=== PATIENT | male | born 1970 | race Caucasian/White ===

== ENCOUNTER 2022-01-30 07:08 | Day surgery (SDC) | payer OTHER ==
[~2022-01-30] VITALS: Ht 200.7 cm; Wt 152.0 kg
[~2022-01-30 07:08] MED LIST: ALLEGRA ALLERG180 MG PO; GLUCOSAMINE HC500 MG PO
--- NOTE | 2022-01-30 09:54 | NUR ---
01/30/22 0954 Areli Dorman 0950-PT TO PACU IN LL POSITION. EYES CLOSED. PT OPENS EYES AND RESPONDS TO VERBAL STIMULI. PT REPORTS CRAMPY PAIN IN LOWER ABDOMEN. PT ENCOURAGED TO PASS GAS. BREATHING EASY AND UNLABORED. SPO2 >95% ON 3 L O2 VIA NC.
--- NOTE | 2022-01-31 05:38 | OR ---
[facility] [address] [place], [place] [address] Signed DATE OF OPERATION: 01/30/2022 SURGEON: Marleen Perla MD PREOPERATIVE DIAGNOSES: 1. Maternal uncle with colon cancer in late 50s. 2. Pruritus ani. POSTOPERATIVE DIAGNOSES: 1. Moderate left-sided diverticulosis. 2. A 3 mm polyp at 10 cm. 3. A 5 mm polyp at 30 cm. 4. A 3 mm polyp at the base of cecum. 5. A 4 mm polyp at 62 cm. 6. A 4 mm polyp at 25 cm. PROCEDURE: Colonoscopy with hot biopsy. ESTIMATED BLOOD LOSS: None. INDICATIONS: Davidson is a 51-year-old gentleman asked to see me for his initial colonoscopy. His maternal uncle was diagnosed and of his colon cancer in his late 50s. Davidson also works at [employer], he does describe pruritus ani. He has a regimen at home and he follows and it worked out very nicely for him. I gave him a brochure on colonoscopy. He understands the nature of the test. There is risk including, but not limited to gas bloating, crampy abdominal pain, bleeding, perforation requiring surgery, and missed diagnosis. We also discussed the need for IV conscious sedation. He had expressed understanding and wished to proceed. DESCRIPTION OF PROCEDURE: Davidson was taken into our endoscopy suite and placed in the left lateral decubitus position. He was given a total of 10 mg of Versed and 200 mcg of fentanyl to cover the whole case. He metabolized drug very quickly, and most frequently awake and talking to us and moaning and moving around in pain. He is also a very large man at 6 feet 5 inches tall and over 300 pounds. He would be much safer and would serve him much better to have monitored anesthesia care in the future with propofol. A digital rectal exam had been performed and he has good sphincter tone without any external hemorrhoids. I Electronically Signed By: MARLEEN PERLA MD 01/31/22 0538 PATIENT NAME: DAVIDSON PEREZ OPERATIVE REPORT DATE OF : 74 REPORT #: [id number] PHYSICIAN: MARLEEN PERLA MD PCP: AARON HO MD REPORT IS CONFIDENTIAL AND NOT TO BE RELEASED WITHOUT AUTHORIZATION [facility] [address] [place], [place] [address] Signed could just reach the base of his prostate, it is a bit indurated at his age. The adult colonoscope had been introduced and advanced under direct visualization of the camera up into the cecum. We had used extra sedation and abdominal compression in order to advance the scope. His prep was quite good. We could easily see the appendiceal orifice and the ileocecal valve. The scope was then slowly withdrawn. We took pictures throughout for photodocumentation. The above-mentioned polyps were all removed with the help of hot biopsy forceps. He does have moderate left-sided diverticulosis, they are moderate in size, moderate in number, and scattered about. Once in the rectum, the scope had been retroflexed, really no evidence of any internal hemorrhoids. After this, the gas was suctioned out, colonoscope removed. Overall, Davidson tolerated the procedure well. RECOMMENDATIONS: I will see Davidson back in my office in 7 to 14 days to review his results. He might consider monitored anesthesia care in the future. Marleen Perla MD ALB/MODL /[id number] cc: MD Aaron Bishop MD Patient Chart Copies: MARLEEN PERLA MD, ROBERT D DMD ~ Electronically Signed By: MARLEEN PERLA MD 01/31/22 0538 PATIENT NAME: DAVIDSON PEREZ OPERATIVE REPORT DATE OF : 74 REPORT #: [id number] PHYSICIAN: MARLEEN PERLA MD PCP: AARON HO MD REPORT IS CONFIDENTIAL AND NOT TO BE RELEASED WITHOUT AUTHORIZATION
--- NOTE | 2022-02-02 10:16 | PATH ---
[facility] [address] [place] [place] [address] Signed SPECIMEN(S): A COLON POLYP AT 10 CM SPECIMEN(S): B COLON POLYP AT 30 CM SPECIMEN(S): C CECUM POLYP SPECIMEN(S): D COLON POLYP AT 62 CM SPECIMEN(S): E COLON POLYP AT 25 CM SPECIMEN SOURCE: A. COLON POLYP AT 10 CM B. COLON POLYP AT 30 CM C. CECUM POLYP D. COLON POLYP AT 62 CM E. COLON POLYP AT 25 CM CLINICAL HISTORY: Screening colonoscopy. Dx: Polyp and diverticulosis. FINAL PATHOLOGIC DIAGNOSIS: A. Colon, polyp at 10 cm, polypectomy: - Cauterized colonic mucosa with focal mucosal changes and nuclear hyperchromasia, see Comment. - Negative for high-grade dysplasia or malignancy. B. Colon, polyp at 30 cm, polypectomy: - Fragments of hyperplastic polyp. - Negative for dysplasia or malignancy. C. Colon, cecum, polyp, polypectomy: - Hyperplastic polyp. - Negative for dysplasia or malignancy. D. Colon, polyp at 62 cm, polypectomy: - Cauterized tubular adenoma. - Negative for high-grade dysplasia or malignancy. E. Colon, polyp at 25 cm, polypectomy: - Tubular adenoma. - Negative for high-grade dysplasia or malignancy. COMMENT: Regarding specimen A: The cautery artifact precludes definitive interpretation for low-grade dysplasia, however a cauterized tubular adenoma is favored. Multiple additional deeper levels of specimens A, C, and D were examined. NAL:cml:C2NR MICROSCOPIC EXAMINATION: PATIENT NAME: DAVIDSON PEREZ PATHOLOGY DATE OF : 74 REPORT #: [id number] PHYSICIAN: JAKUB LOPEZ PCP: AARON HO MD REPORT IS CONFIDENTIAL AND NOT TO BE RELEASED WITHOUT AUTHORIZATION [facility] [address] [place], [place] [address] Signed Histologic sections of all submitted blocks are examined by light microscopy. These findings, together with the gross examination, support the pathologic diagnosis. GROSS DESCRIPTION: Five specimens are received in five containers, labeled "MN." A. The specimen, labeled "MN, colon polyp at 10 cm," is received in formalin and consists of one shah soft tissue fragment that measures 0.2 cm in greatest dimension. The specimen is entirely submitted in cassette (A1). B. The specimen, labeled "MN colon polyp at 30 cm," is received in formalin and consists of three shah soft tissue fragments that measure 0.2 cm in greatest dimension. The specimen is entirely submitted in cassette (B1). C. The specimen, labeled "MN, cecum polyp," is received in formalin and consists of two shah soft tissue fragments that measure 0.2 cm in greatest dimension. The specimen is entirely submitted in cassette (C1). D. The specimen, labeled "MN, colon polyp at 62 cm," is received in formalin and consists of one shah soft tissue fragment that measures 0.1 cm in greatest dimension. The specimen is entirely submitted in cassette (D1). E. The specimen, labeled "MN, colon polyp at 25 cm," is received in formalin and consists of one shah soft tissue fragment that measures 0.1 cm in greatest dimension. The specimen is entirely submitted in cassette (E1). JS (under the direct supervision of a pathologist) The Gross Description was prepared using a voice recognition system. The report was reviewed for accuracy; however, sound-alike word errors, addition and/or deletions may occur. If there is any question about this report, please contact Client Services. PERFORMING LABORATORY: The technical component was performed by [facility], [address] [place] [id number] (CLIA# [id number]). Professional interpretation was performed by [facility], [address] [address] (CLIA# [id number]). Diagnostician: Erendira Torres MD Pathologist PATIENT NAME: DAVIDSON PEREZ PATHOLOGY DATE OF : 74 REPORT #: [id number] PHYSICIAN: JAKUB PATHOLOGY PCP: AARON HO MD REPORT IS CONFIDENTIAL AND NOT TO BE RELEASED WITHOUT AUTHORIZATION [facility] [address] [place], [place] [address] Signed Electronically Signed 02/02/2022 Copies: ~ PATIENT NAME: DAVIDSON PEREZ PATHOLOGY DATE OF : 74 REPORT #: [id number] PHYSICIAN: JAKUB LOPEZ PCP: AARON HO MD REPORT IS CONFIDENTIAL AND NOT TO BE RELEASED WITHOUT AUTHORIZATION
== END 2022-01-30 10:25 | disposition home or self-care (01) ==
LOC: OPS 07:08 → DS 07:08 → OPS 09:00
PROVIDERS: ATTEND Colon & Rectal Surgery
PROC: 0DBE8ZX Excision of Large Intestine, Via Natural or Artificial Opening Endoscopic, Diagnostic (ICD-10-PCS; 2022-01-30)
PROC: 0DBH8ZX Excision of Cecum, Via Natural or Artificial Opening Endoscopic, Diagnostic (ICD-10-PCS; principal; 2022-01-30 08:15)
DX: Z12.11 Encounter for screening for malignant neoplasm of colon (principal); D12.0 Benign neoplasm of cecum; L29.0 Pruritus ani; I10 Essential (primary) hypertension; E78.2 Mixed hyperlipidemia; E66.9 Obesity, unspecified; Z88.1 Allergy status to other antibiotic agents; Z68.37 Body mass index [BMI] 37.0-37.9, adult; Z80.0 Family history of malignant neoplasm of digestive organs; K57.30 Diverticulosis of large intestine without perforation or abscess without bleeding
CPT/HCPCS: 99153; G0500; J2250; J3010; J7121

== ENCOUNTER 2022-02-14 14:57 | Inpatient (IN) | payer OTHER ==
[~2022-02-14] VITALS: Ht 200.7 cm; Wt 148.0 kg
[2022-02-14] MEDS ORDERED: IBUPROFEN200 M1 PO (15:27)
--- NOTE | 2022-02-14 19:30 | NUR ---
PATIENT ARRIVED VIA STRETCHER FROM ED. PATIENT IS ALERT AND ORIENTED. TRANSFERED INDEPENDENTLY TO THE BED. DENIES FEELING LIGHTHEADED OR SOB. VS STABLE. IV SITES WNL X2. PATIENT'S IN ROOM. PATIENT DENIED FEELING NAUSEA OR GI UPSET. DENIES PAIN. ABD IS SOFT, BOWEL SOUNDS ACTIVE. PATIENT STARTED ON BOWEL PREP. IV FLUIDS PER ORDER.
--- NOTE | 2022-02-14 20:30 | NUR ---
PATIENT VOIDED 100 MLS CONCENTRATED URINE. HAD A LIQUID BM, DARK RED WITH CLOTS. EASTIMATED 250 MLS. PATIENT REPORTS FEELING WEAKER BUT NO OTHER CONCERNS. VS STABLE.
--- NOTE | 2022-02-14 22:00 | NUR ---
PATIENT FINISHED BOWEL PREP. ANOTHER LARGE LIQUID BM WITH SOME SOLIDS NOTED BY HOLE DIGGER. 900MLS IN TOTAL. PATIENT VOIDED ANOTHER 100 MLS OF CONCENTRATED URINE. NO GI UPSET. VS STABLE. IV FLUIDS PER ORDER. PATIENT DENIES ANY FURTHER NEEDS; CALL LIGHT IN REACH. LABS DRAWN FROM IV SITE; PROTOCOL FOLLOWED FROM PROPER LAB COLLECTION.
--- NOTE | 2022-02-15 02:37 | NUR ---
PATIENT UP TO VOID X2. THIS MORE RECENT TIME HE ALSO HAD A BM. MORE BLOODY LIQUID STOOL WITH SMALL CLOTS AND BM MIXED. PATIENT DENIED FEELING LIGHTHEADED; REPORTS BEING TIRED AND NOT SLEEPING WELL. FAMILY AT BEDSIDE. VS STABLE. IV SITE WNL X2. NO NAUSEA OR GI UPSET. DENIED PAIN.
--- NOTE | 2022-02-15 04:15 | NUR ---
PATIENT APPEARS TO BE RESTING, EYES CLOSED. VS STABLE.
--- NOTE | 2022-02-15 06:04 | CONS ---
[facility] [address] [place], [place] [address] Signed DATE OF CONSULTATION: 02/14/2022 CHIEF COMPLAINT: Rectal bleeding. HISTORY OF PRESENT ILLNESS: Davidson is a 51-year-old gentleman, who was asked to see me for his initial colonoscopy. His maternal uncle developed colon cancer in his late 50s and very quickly thereafter from the colon cancer. 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 I took him for his colonoscopy on 01/30/2022. He had polyps measuring 3 to 5 mm at 10 cm, base of cecum, 30 cm, 62 cm, and 25 cm. He has moderate left-sided diverticulosis. Really not much in the way of any internal hemorrhoids. He has done well and gone home. He has actually been back to the office for followup. These were hyperplastic and adenomatous polyps. He has been working in construction. Specifically, he was lying heavy large tile all day yesterday. By noon today he was having some rectal bleeding. He has had multiple episodes. He finally came to emergency room for evaluation. He has been hemodynamically stable and currently his hemoglobin is 15. BUN is ever so slightly up at 19. The blood happens to be red. He is COVID negative. His other labs were fine. He has been evaluated by the ER physician, Dr. Paul Melendez. He is being admitted to our Internal Medicine Service and of course I have been asked to see him in consultation. I came here to the emergency room to talk with Davidson and his . PAST MEDICAL HISTORY: Prostate inflammation, elevated ALT, hypertension, hyperlipidemia, obesity, osteoarthritis of the right shoulder and AC joint, right rotator cuff sprain, right rhomboid muscle strain, and prostate neoplasm. PAST SURGICAL HISTORY: [place] teeth extraction in 1989, and then his colonoscopy on 01/30/2022. SOCIAL HISTORY: He is single, but is in a monogamous relationship. He does not drink alcohol or smoke. He does not do any recreational drugs. Dr. Aaron Ho is primary care provider. FAMILY HISTORY: Paternal grandfather with type 2 diabetes. Paternal uncle with colon cancer in his 50s and maternal grandmother with breast cancer. MEDICATIONS: Tylenol p.r.n., glucosamine, Flonase, Eliz, and occasional ibuprofen. ALLERGIES: Electronically Signed By: MARLEEN PERLA MD 02/15/22 0604 PATIENT NAME: DAVIDSON PEREZ CONSULTATION DATE OF : 74 REPORT #: [id number] PHYSICIAN: MARLEEN PERLA MD PCP: AARON HO MD REPORT IS CONFIDENTIAL AND NOT TO BE RELEASED WITHOUT AUTHORIZATION [facility] [address] [place], [place] [address] Signed Erythromycin. REVIEW OF SYSTEMS: He had 10 systems reviewed. He told me he took one ibuprofen this morning, but otherwise has been doing fine. PHYSICAL EXAMINATION: VITAL SIGNS: His blood pressure is 102/92, heart rate 70, respiratory rate 19, his O2 saturation 95%. He is 6 feet 7 inches tall, 151 kg. GENERAL: Davidson is a 51-year-old gentleman lying supine semi-recumbent in his ER bed with his girlfriend at the bedside. He is alert, awake, and interactive. He has no increased respiratory distress. He is a good historian. ABDOMEN: Benign. LABORATORY DATA: His white blood cell count is 8.3, hemoglobin 15, neutrophils 63, platelets 210. Potassium 3.3, BUN 19, creatinine 0.83. COVID was negative. INR 0.98. His calcium is slightly low at 8.1. His liver function tests are negative. Albumin 3.5. RADIOGRAPHIC STUDIES: None. ASSESSMENT AND PLAN: Davidson is a 51-year-old gentleman, who presents with what appears to be a post polypectomy bleed 15 days after his colonoscopy. It is bright red, and it could be the biopsy site from the rectum or quite frankly any of the other biopsy sites. At this point, we are going to admit him, hydrate him, give him a bowel prep tonight with hopes to perform his colonoscopy tomorrow and see if we can find which biopsy site is bleeding. In general, these patients do well. I have reviewed this with Davidson and his girlfriend in detail. They are very familiar with colonoscopy. They understand there is risk including, but not limited to gas, bloating, crampy abdominal pain, bleeding, perforation requiring surgery, and missed diagnosis. In addition, he used a large amount of Versed and fentanyl in his last procedure and he is probably hanson on this occasion to the use monitored anesthesia care given the acute setting. They have expressed understanding and agreed above plan. Marleen Perla MD ALB/MODL /[id number] Electronically Signed By: MARLEEN PERLA MD 02/15/22 0604 PATIENT NAME: DAVIDSON PEREZ CONSULTATION DATE OF : 74 REPORT #: [id number] PHYSICIAN: MARLEEN PERLA MD PCP: AARON HO MD REPORT IS CONFIDENTIAL AND NOT TO BE RELEASED WITHOUT AUTHORIZATION [facility] [address] [place] [address] Signed cc: MD Aaron Bishop MD Copies: MARLEEN PERLA MD, ROBERT D DMD ~ Electronically Signed By: MARLEEN PERLA MD 02/15/22 0604 PATIENT NAME: DAVIDSON PEREZ CONSULTATION DATE OF : 74 REPORT #: [id number] PHYSICIAN: MARLEEN PERLA MD PCP: AARON HO MD REPORT IS CONFIDENTIAL AND NOT TO BE RELEASED WITHOUT AUTHORIZATION
--- NOTE | 2022-02-15 06:05 | NUR ---
PATIENT UPDATE PROVIDED TO . NO NEW ORDERS. IN TO SEE PATIENT.
--- NOTE | 2022-02-15 07:30 | NUR ---
PATIENT SHIFT REPORT RECIEVED FROM ENTERTAINMENT USHER RN. PATIENT HAS LEFT WITH SURGICAL STAFF AT 0710 FOR AM PROCEDURE. WILL AWAIT FOR PATIENTS RETURN. BEDDING CHANGED AND ROOM CLEANED.
--- NOTE | 2022-02-15 08:30 | NUR ---
PATIENT ARRIVED BACK FROM HIS PROCEDURE. PATIENT WAS ABLE TO TRANSFER HIMSELF FROM THE STRETCHER TO THE BED. KATTY BARBER AT THE BEDSIDE. BRAYDEN PORTER ARRIVED WITH PATIENT WELL. PATIENTS VITALS STABLE. PATIENT HOLDING TALKING WITH STAFF. WILL CONTINUE TO CLOSELY MONITOR.
--- NOTE | 2022-02-15 09:32 | NUR ---
PATIENT HAS DONE WELL SINCE THE PROCEDURE. MD PERLA ADVANCED PATIENTS DIET. PATIENT RESTING IN BED AND WORKING ON FULL LIQUID TRAY AT THIS TIME. PATIENTS SIGNIFICANT OTHER IS AT THE BEDSIDE. PER MD PERLA PATIENT CAN GO HOME TODAY. WILL CONTINUE TO CLOSELY MONTIOR.
--- NOTE | 2022-02-15 09:53 | NUR ---
SBA TO BR FOR VOID. PATIENT STEADY ON HIS FEET. ATE 1/2 FULL LIQUID TRAY. NEW GOWN AND FRESH WATER PROVIDED. PATINE BACK IN BED, CALL LIGHT IN EASY REACH. AT BEDSIDE.
--- NOTE | 2022-02-15 11:00 | NUR ---
REVIEWD WITH MD CHRISTOPHER. PATIENT DOES NOT NEED CONTINUOUS FLUIDS. PATIENT ENCOURAGED TO CONTINUING DRINKING WATER AND IF DOING WELL THIS AFTERNOON WITH DISCHARGE HOME.
--- NOTE | 2022-02-15 11:41 | NUR ---
PATIENT RESTING IN BED. PATIENT HAS BEEN UP TO THE BATHROOM AND DENIES DIZZINESS. PATIENT IS STEADY ON HIS FEET. PER MD WILL ADVANCE HIS DIET TO SOFT DIET AND MONITOR INTO THIS AFTERNOON.
--- NOTE | 2022-02-15 12:34 | NUR ---
PATIENT FINISHED HIS LUNCH AND TOELRATED WELL. PATIENT UP TO THE BATHROOM WITH SURINDER STARR. PATIENT HAD AN X-SMALL BM THAT APPEARED BROWN WITH A HINT OF PINK COLOR. PATIENT UP WALKING TH UNIT WHEN MD CHRISTOPHER CAME THROUGH TO SEE PATIENT. UPDATED ON PATIENTS STATUS AND BM. PER MD PATIENT CAN DISCHARGE HOME. PATIENT BACK TO BED AT THIS TIME. WILL CONTINUE TO CLOSELY MONITOR.
--- NOTE | 2022-02-15 12:34 | NUR ---
VITALS AND I&OS CHARTED. PATIENT TOLERATED FULL LIQUID LUNCH, SMALL BM-(RN NOTED COLOR) PATIENT AMBULATED CCU PRASAD SEVERAL TIMES, BACK IN BED AT THIS TIME. CALL LIGHT AND PERSONAL ITEMS IN EASY REACH.
--- NOTE | 2022-02-15 13:30 | NUR ---
PHARMACY IN TO SEE PATIENT AND REVIEWED MEDICATIONS WITH PATIENT. THIS RN IN AND DISCHARGE INSTRUCTIONS GIVEN. PATIENT AND HIS REPEATED INFORMATION BACK TO THIS RN. PATIENT EDUCATED TO FOLLOW A LOW-FIBER DIET FOR 2 WEEKS AND THEN RESUME A REGULAR DIET. NO NSAIDS OR ASPRIN FOR 2 WEEKS. EDUCATED TO RETURN IF WORSENING OF SYMPTOMS. EDUCATION GIVEN TO PATIENT AND HIS TO TAKE HOME. REMOVED TWO IVS PRIOR TO DISCHARGE. VITALS DONE. DENNY PORTER ASSISTED PATIENT TO THE FRONT VIA WHEELCHAIR. NO OTHER NEEDS AT THIS TIME.
--- NOTE | 2022-02-15 17:19 | OR ---
[facility] [address] [place], [place] [address] Signed DATE OF OPERATION: 02/15/2022 SURGEON: Marleen Perla MD PREOPERATIVE DIAGNOSES: 1. Post polypectomy lower gastrointestinal bleed (two weeks). 2. Polypectomies at the base of cecum, 62 cm, 30 cm, 25 cm and 10 cm. 3. Pandiverticulosis. 4. Dclnqox-xp-qzuwttgq internal hemorrhoids. POSTOPERATIVE DIAGNOSES: 1. Cecal polypectomy site clipped x2. 2. Moderate pandiverticulosis. 3. A 3 and 4 mm polyps x2 at distal right colon. 4. A 7 mm polyp at hepatic flexure (snare). 5. Hqbikfs-im-pvnwbngm internal hemorrhoids. PROCEDURES: Colonoscopy with snare polypectomy, hot biopsy and application of clips x2. ESTIMATED BLOOD LOSS: None. INDICATIONS: Davidson is a 51-year-old gentleman, who came to us two weeks ago for initial screening colonoscopy due to his family history. We had removed the above mentioned polyps. He had actually done well and we saw him back in the office and reviewed the fact that he had some hyperplastic and adenomatous polyps. We put him on the 5-year plan. He is known to have pandiverticulosis along with his hbltoto-yf-gfzopncm internal hemorrhoids as well. 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 At jainism, he had eaten some type of papaya drink full with seeds just prior to his lower GI bleed. He had taken one ibuprofen in the morning, he was sore. He started to notice bright red blood per rectum. He came to emergency room for evaluation. I saw him last night in the emergency room. He was hemodynamically stable and we admitted him to the ICU overnight. His hemoglobin has gone down to 1-2 g. He did tolerate the bowel prep quite nicely. I met with Davidson and his girlfriend again this morning. We had reviewed the above findings. We plan to re-scope in this morning to look at his polypectomy sites. They understand there is a 1% or less chance of bleeding from endoscopies. In addition, he took a large amount of Versed and fentanyl previously and in addition in this acute situation, we asked that he has moderate anesthesia care with Electronically Signed By: MARLEEN PERLA MD 02/15/22 1719 PATIENT NAME: DAVIDSON PEREZ OPERATIVE REPORT DATE OF : 74 REPORT #: [id number] PHYSICIAN: MARLEEN PERLA MD PCP: AARON HO MD REPORT IS CONFIDENTIAL AND NOT TO BE RELEASED WITHOUT AUTHORIZATION [facility] [address] [place], [place] [address] Signed propofol, that proved to be a hanson decision as he was even moving around some with the propofol and we had increased the drip. They had expressed understanding and wished to proceed. PROCEDURE NOTE: Davidson was taken down to our endoscopy suite and placed in the left lateral decubitus position. He was given monitored anesthesia care with propofol per our nurse applications development consultant. A digital rectal exam was performed and this was unremarkable. Specifically, no blood on the index finger. The adult colonoscope, been introduced and advanced under direct visualization of camera. He had a few areas of red liquid particulate matter that we were able to suction out. He had quite a few the papaya seeds scattered throughout his colon. We very carefully and slowly advance the scope and we found each and every polypectomy site except for the one at 10 cm in the rectum. Interestingly enough, we spent quite a bit of time looking for that polypectomy site, we never could find it. When we made it to the cecum, we could see the polypectomy site at the base. With a little irrigation, I did use a little, so we decided to go ahead and place two clips across that polypectomy site with good results. We had taken pictures throughout for photodocumentation. The scope was then slowly withdrawn. We found a 3 and a 4 mm polyp, next to which I had in the distal right colon, and they were removed with a hot biopsy forceps. We found a 7 mm sessile polyp at the hepatic flexure, and we used the snare and hot biopsy forceps to remove it as well. The rest of the polypectomy sites were visualized directly going in and going out, they all seemed to be quite satisfactory. Once again he has minimal to moderate internal hemorrhoids. After this, the gas had been suctioned out. The colonoscope removed. Davidson tolerated the procedure quite well. RECOMMENDATIONS: I have reviewed this with his in the recovery room. They have a copy of the photographs. I will see him back in my office in 7 to 10 days for review of the biopsies. MD FADI Bishop/TRUL /[id number] Electronically Signed By: MARLEEN PERLA MD 02/15/22 1719 PATIENT NAME: DAVIDSON PEREZ OPERATIVE REPORT DATE OF : 74 REPORT #: [id number] PHYSICIAN: MARLEEN PERLA MD PCP: AARON HO MD REPORT IS CONFIDENTIAL AND NOT TO BE RELEASED WITHOUT AUTHORIZATION [facility] [address] [place], [place] [address] Signed cc: Patient Chart MD Marleen Hernández MD Copies: AARON HO DMD, ANDREW L MD ~ Electronically Signed By: MARLEEN PERLA MD 02/15/22 1719 PATIENT NAME: DAVIDSON PEREZ OPERATIVE REPORT DATE OF : 74 REPORT #: [id number] PHYSICIAN: MARLEEN PERLA MD PCP: AARON HO MD REPORT IS CONFIDENTIAL AND NOT TO BE RELEASED WITHOUT AUTHORIZATION
== END 2022-02-15 13:26 | disposition home or self-care (01) | DRG 378 ==
LOC: ED 14:57 → CCU 18:16
PROVIDERS: Colon & Rectal Surgery; ADMIT Internal Medicine; ATTEND Internal Medicine
PROC: 0W3P8ZZ Control Bleeding in Gastrointestinal Tract, Via Natural or Artificial Opening Endoscopic (ICD-10-PCS; 2022-02-15)
PROC: 0DBL8ZZ Excision of Transverse Colon, Via Natural or Artificial Opening Endoscopic (ICD-10-PCS; principal; 2022-02-15 11:00)
DX: K92.2 Gastrointestinal hemorrhage, unspecified (principal); D62 Acute posthemorrhagic anemia; K63.5 Polyp of colon; E87.6 Hypokalemia; Z20.822 Contact with and (suspected) exposure to COVID-19; K64.8 Other hemorrhoids; I10 Essential (primary) hypertension; E78.5 Hyperlipidemia, unspecified; E66.9 Obesity, unspecified; M19.011 Primary osteoarthritis, right shoulder; C61 Malignant neoplasm of prostate; Z98.890 Other specified postprocedural states; Z88.1 Allergy status to other antibiotic agents; Z79.899 Other long term (current) drug therapy; Z87.828 Personal history of other (healed) physical injury and trauma; Z79.52 Long term (current) use of systemic steroids
CPT/HCPCS: 00811; 36415; 80048; 80053; 85018; 85025; 85610; 85730; 86850; 86900; 86901; 87502; 99285; C9113; C9803; J2001; J2704; J3480; J7060; J7120; U0003